=== PATIENT | female | born 1935 | race Caucasian/White ===

== ENCOUNTER → 2017-03-14 | Outpatient (CLI) | payer MEDICARE, BC | END | disposition home or self-care (01) | LOC: CVU 15:01 | PROVIDERS: ATTEND Internal Medicine | DX: I08.1 Rheumatic disorders of both mitral and tricuspid valves (principal); R94.31 Abnormal electrocardiogram [ECG] [EKG]; I49.9 Cardiac arrhythmia, unspecified; Z87.891 Personal history of nicotine dependence | CPT/HCPCS: 93005; 93306 ==

== ENCOUNTER → 2019-06-02 | Outpatient (CLI) | payer MEDICARE, BC | END | disposition home or self-care (01) | LOC: CFH 08:42 | PROVIDERS: ATTEND Internal Medicine Cardiovascular Disease | DX: I08.1 Rheumatic disorders of both mitral and tricuspid valves (principal); I10 Essential (primary) hypertension; Z87.891 Personal history of nicotine dependence | CPT/HCPCS: 93306; 93975 ==

== ENCOUNTER → 2019-06-07 | Outpatient (CLI) | payer MEDICARE, BC ==
[~2019-06-07] MED LIST: REGADENOSON 0.4 MG/5 ML SYRINGE ONE
== END | disposition home or self-care (01) ==
LOC: CFH 07:31
PROVIDERS: ATTEND Internal Medicine Cardiovascular Disease
DX: R07.89 Other chest pain (principal); R06.02 Shortness of breath; I10 Essential (primary) hypertension
CPT/HCPCS: 78452; 93017; A9502; J2785

== ENCOUNTER → 2020-08-09 | Outpatient (CLI) | payer MEDICARE, BC | END | disposition home or self-care (01) | LOC: CVU 13:39 | PROVIDERS: ATTEND Registered Nurse | DX: I08.8 Other rheumatic multiple valve diseases (principal); R60.9 Edema, unspecified | CPT/HCPCS: 93306 ==

== ENCOUNTER → 2020-11-14 | Outpatient (CLI) | payer MEDICARE, BC | END | disposition home or self-care (01) | LOC: CVU 09:46 | PROVIDERS: ATTEND Registered Nurse | DX: I73.9 Peripheral vascular disease, unspecified (principal); I10 Essential (primary) hypertension; I48.91 Unspecified atrial fibrillation; Z87.891 Personal history of nicotine dependence | CPT/HCPCS: 93922 ==